=== PATIENT | male | born 1980 | race African-American/Black ===

== ENCOUNTER 2016-07-22 19:59 | Emergency (ER) | payer OTHER ==
[~2016-07-22 19:59] MED LIST: ENGERIX-B20 MCG/ML IM; FLEXERIL10 MG PO; GUAIFENESIN-COD10 ML PO; MOTRIN 600 MG600 MG PO; NAPROSYN 500 M500 MG PO; ROBITUSSIN W/CO10 ML PO; VITAMIN D50000 IU IM; ZITHROMAX Z-PA250 M1 PO; ZITHROMAX250 M2 PO
[2016-07-22 20:13] VITALS: BP 124/78
[2016-07-22] MEDS ORDERED: IBUPROFEN800 M1 PO (20:46)
--- NOTE | 2016-07-22 20:48 | ED HAND/WRIST INJURY COMPLAINT ---
History of Present Illness General Chief Complaint: Hand or Wrist Injury Stated Complaint: "NUMB WRIST" PER PT Source: patient Exam Limitations: no limitations Vital Signs & Intake/Output Vital Signs & Intake/Output Vital Signs Date Time Temp Pulse Resp B/P B/P Pulse O2 O2 Flow FiO2 Mean Ox Delivery Rate 07/22 2012 88 20 124/78 98 ED Intake and Output 07/23 0000 07/22 1200 Intake Total Output Total Balance Patient 125 lb Weight Allergies Coded Allergies: NO KNOWN ALLERGIES (05/18/11) Reconcile Medications Azithromycin (Zithromax) 250 MG TABLET 1 DP PO AD URI 2 the first day followed by 1 for days 2-5 Azithromycin (Zithromax Z-Lázaro) 250 MG CAP 1 TAB PO DAILY BRONCHITIS TAKE 2 PILLS ON DAY 1 AND THEN 1 PILL A DAY FOR 4 MORE DAYS CYCLOBENZAPRINE HCL (Flexeril) 10 MG TAB 1 TAB PO Q8P PRN LOW BACK STRAIN ERGOCALCIFEROL (VITAMIN D2) (Vitamin D2) 50,000 IU SGL 1 INJ IM ONCE A WEEK BONE HEALTH (Reported) Hepatitis B Vaccine Recombin (Engerix-B) 20 MCG/ML UMER 1 UNIT IM HEP B VIRUS (Reported) Ibuprofen 800 MG TABLET 1 TAB PO TID pain Ibuprofen (Motrin 600 MG Tab) 600 MG TAB 1 TAB PO TID pain with food Naproxen (Naprosyn) 500 MG TAB 1 TAB PO BID PAIN Robitussin AC (Guaifenesin-Codeine Syrup) 10 ML LIQUID 10 ML PO Q6HR PRN COUGH Robitussin AC (Guaifenesin-Codeine Syrup) 10 ML UDC 10 ML PO Q6P PRN COUGH Triage Note: PER PT 1 HR OF L WRIST NUMBNESS, AFTER FALLING ASLEEP, WENT ON WEB AND FOUND THAT IT COULD TAKE DAYS FOR NUMBNESS TO COME BACK, I DONT WANT TO WAIT. NO NEURO DEFICTIS NOTED Triage Nurses Notes Reviewed? yes Occurred: just prior to arrival Duration: hour(s):, constant, continues in ED Timing: recent history Injury Environment: home No Modifying Factors: none HPI: 35-year-old male comes into emergency room for further evaluation of feeling like his wrist and hand has gone numb. He reports that he was sleeping at his desk and taking a nap when he woke up and the symptoms started. Patient reports since then about an hour and they have not resolved. Patient was concerned and nervous so he came here for further evaluation. No slurred speech. No numbness or tingling on face or lower extremities. Denies any other associated symptoms or prior history of this ever happening before. (TONI NOVA) Past History Travel History Traveled to [place] past 21 day No Medical History Any Pertinent Medical History? 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 No (TONI NOVA) Review of Systems Review of Systems Constitutional: Reports: no symptoms. EENTM: Reports: no symptoms. Respiratory: Reports: no symptoms. Cardiovascular: Reports: no symptoms. GI: Reports: no symptoms. Genitourinary: Reports: no symptoms. Musculoskeletal: Reports: see HPI. Skin: Reports: no symptoms. Neurological/Psychological: Reports: no symptoms. Hematologic/Endocrine: Reports: no symptoms. Immunologic/Allergic: Reports: no symptoms. All Other Systems: Reviewed and Negative (TONI NOVA) Physical Exam Physical Exam General Appearance: well developed/nourished, mild distress Head: atraumatic Eyes: Bilateral: normal appearance. 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 Nontoxic-appearing. In no apparent distress. (TONI NOVA) Departure Departure Disposition: HOME OR SELF CARE Condition: Stable Clinical Impression Primary Impression: Median nerve palsy Referrals: PATIENT HAS NO PRIMARY CARE DR (PCP/Family) Additional Instructions: Take ibuprofen as prescribed. Follow-up with primary care Dr. provided. Return if any concerns worsening symptoms. Please go over all results of today's visit with your primary care doctor. Contact your primary care doctor to let them know you were here in the emergency room. There may be nonspecific findings which may not be related to your visit today here in the emergency room but may require further evaluation and chronic monitoring by your primary care doctor. If you had a laceration today the chance of foreign body always remains. You should follow-up with your primary care doctor for recheck in 3-5 days for a wound check. If you had an x-ray done there is a chance that a fracture could have been missed on initial read and you should follow-up with your primary care doctor for repeat x-rays if symptoms persist. If your blood pressure was elevated here in the emergency room please have rechecked by her primary care doctor within the next 48 hours by your primary care doctor. If you were prescribed a narcotic here in the emergency room or any type of controlled substances you're not allowed to drive while taking this medication or operate any type of heavy machinery. Narcotics can make you feel lightheaded dizziness nausea and can cause constipation. You may need to pickle sorter a stool softener. Thank you for choosing [facility] emergency room. Please return to the emergency room immediately if you have any other concerns worsening of symptoms. Departure Forms: Customer Survey General Discharge Information Prescriptions: Current Visit Scripts Ibuprofen 1 TAB PO TID #30 TAB (TONI NOAV) PA/DENTAL RESIDENT Co-Sign Statement Statement: ED Attending supervision documentation- [] I saw and evaluated the patient. I have also reviewed all the pertinent lab results and diagnostic results. I agree with the findings and the plan of care as documented in the PA's/DENTAL RESIDENT's documentation. [X] I have reviewed the ED Record and agree with the PA's/DENTAL RESIDENT's documentation. [] Additions or exceptions (if any) to the PAs/DENTAL RESIDENT's note and plan are summarized below: [] (MAURA PARKER,STEVEN Townsend
== END 2016-07-22 21:00 ==
LOC: ERH 19:59
DX: G56.12 Other lesions of median nerve, left upper limb (principal)